=== PATIENT | male | born 1985 | race Caucasian/White ===

== ENCOUNTER 2020-08-25 07:28 | Outpatient (REF) | payer OTHER, SELFPAY ==
[2020-08-25 12:11] LABS: Syphilis Screen Nonreactive (Nonreactive)
[2020-08-25 12:22] LABS: HIV AB/AG Nonreactive (Nonreactive); HIV Num 1 0.11 S/CO (0.00-0.99)
[2020-09-20 09:12] LABS: CT PCR NOT DETECTED (Not Detect.); NG PCR NOT DETECTED (Not Detect.)
== END 2020-08-25 07:29 | disposition home or self-care (01) ==
LOC: HO.HMGCLDS 07:28
PROVIDERS: PCP Nurse Practitioner Family; Visit Provider Nurse Practitioner Family
DX: Z11.3 Encounter for screening for infections with a predominantly sexual mode of transmission (principal)
CPT/HCPCS: 86780; 87389; 87491; 87591

== ENCOUNTER → 2020-08-27 15:35 | Outpatient (BNVA) | payer OTHER, SELFPAY | PROVIDERS: PCP Nurse Practitioner Family; Visit Provider Surgery | DX: N62 Hypertrophy of breast (principal) | CPT/HCPCS: 99202 ==

== ENCOUNTER 2020-09-25 06:53 | Day surgery (SDC) | payer OTHER, SELFPAY ==
[2020-09-19 15:11] VITALS: BMI 30.8
--- NOTE | 2020-09-24 10:33 | P.CONAN_ITS ---
Documented by User: Emily Greer 09/24/20 10:34 HPI - Anesthesia Eval Consult details Narrative: 35yo M for Breast Mass Excision [facility] Past Medical History Medical History Depression Gynecomastia Insomnia Family History Family History Father No problems noted. Mother No problems noted. Surgical History Surgical History History of surgical procedure on eye proper using laser S/P correction of deviated nasal septum Social History Social History Alcohol intake: never Smoking Status: Never smoker Second Hand Smoke Exposure: No Use of substances other than those prescribed or required for medical reasons: No Advance Directives: No Advance Directives Information Provided: No Advance Directives on File: No Meds Allergies Allergy/AdvReac Type Severity Reaction Status Date / Time No Known Allergies Allergy Verified 08/19/20 11:16 Home Medications Medication Instructions Recorded Confirmed Type flu vacc [id number] 6mos up(PF) ml IM 08/19/20 08/19/20 History Exam Exam Date and Time: September 24, 2020 1033 Height,Weight and Vital Signs: Height 6 ft 4 in Weight 114.759 kg Assessment and Plan Assessment Anesthesia Assessment: Chart Reviewed Documented by User: Pawan Larson 09/25/20 07:57 [facility] Past Medical History Medical History Depression Gynecomastia Insomnia Family History Family History Father No problems noted. Mother No problems noted. Surgical History Surgical History History of surgical procedure on eye proper using laser S/P correction of deviated nasal septum Social History Social History (Reviewed 09/25/20 @ 07:57 by Pawan Dawn Alcohol intake: never Smoking Status: Never smoker Second Hand Smoke Exposure: No Use of substances other than those prescribed or required for medical reasons: No Advance Directives: No Advance Directives Information Provided: No Advance Directives on File: No Meds Allergies Allergy/AdvReac Type Severity Reaction Status Date / Time No Known Allergies Allergy Verified 08/19/20 11:16 Home Medications Medication Instructions Recorded Confirmed Type flu vacc [id number] 6mos up(PF) ml IM 08/19/20 08/19/20 History Exam Airway Mallampati Class: II TM Dist: >3cm Neck ROM: Full
[2020-09-25] VITALS (9 sets, daily range): BP systolic 115–140; BP diastolic 48–92; PULSE 63–77; RESP 12–18; TEMP 36.2–37.2; O2SAT 97–100
--- NOTE | 2020-09-25 07:21 | MHC.SHP ---
Pre-Procedural Eval Section A The patient is an INPATIENT: No Changes since office visit: No Cold of Flu in the past 2 weeks, No New Medical Problems and No Changes in Medication The History & Physical has been completed within 30 days and I have reviewed it.: Yes Section B Chief Complaint: gynecomastia Allergies: Allergies Allergy/AdvReac Type Severity Reaction Status Date / Time No Known Allergies Allergy Verified 08/19/20 11:16 Plan Diagnosis/Plan: Unchanged I have reviewed the history and physical and performed a pertinent physical examination on my patient. No changes have occurred unless specified.
[2020-09-25] MEDS: ceFAZolin Sodium/Dextrose,Iso 2 GM/50 ML PIGGYBACK IV (07:24)
[2020-09-25] MEDS: Lactated Ringers 1,000 ML 100 ML IVCONT (07:24)
--- NOTE | 2020-09-25 10:08 | P.BOP_ITS ---
Brief Operative Note Date of Service: 09/25/20 Pre-op diagnosis: Bilateral breast masses Post-op diagnosis: same Procedure: Excision bilateral breast masses Implants: none Surgeon: Basil Pabon MD Anesthesia: GLMA Superintendent Mechanical: Brina Vogel Estimated blood loss (mL): 10 Pathology: other (bilateral breast masses) Condition: stable Disposition: PACU
--- NOTE | 2020-09-25 10:09 | W.PM.OPN ---
Operative Note Operative Note Date of Service: 09/25/20 Narrative: Preoperative diagnosis: Bilateral breast masses Postoperative diagnosis: Same Procedure: Excision of bilateral breast masses Surgeon: Basil Pabon MD [employer] Repairer: Brina Vogel PA-C Anesthesia general LMA Indications for procedure this is a 35-year-old male patient presenting with complaints of bilateral breast masses located below the nipple which are painful and seems to be increasing in size over the past several years. On examination patient has bilateral hard mass is located below the nipple each measuring approximately 8 cm in the diameter. Operative findings. Patient was found to have bilateral breast masses as noted above. Specimen: Bilateral breast mass is for Estimated blood loss: 10 mL Complications: None Procedure details: Patient was brought to the OR placed in supine position. After administering general anesthesia the patient's bilateral chest was prepped with ChloraPrep and draped in a sterile fashion. A surgical time-out was called and consent confirmed. Patient received preoperative antibiotics and Venodyne boots were in place. Beginning on the left side local anesthesia consisting of 0.75% Sensorcaine mixed with equal amounts of saline solution were infiltrated did a curvilinear fashion below the nipple. Incision was then made with the scalpel. Electrocautery dissection was then performed 1st beginning below the nipple-areolar complex and then continuing below the mass along the chest wall. Dissection was continued both medial and lateral followed by superior at which point the lesion was excised. Palpation of the chest revealed several residual fragments of the lesion both in the superior medial and lateral portions of the breast. These were each excised again using electrocautery dissection down the chest wall. Wounds were checked for hemostasis. Attention was then directed to the right breast where again local anesthesia was infiltrated and a curvilinear incision made in the same fashion below the nipple. Dissection was continued on both the subareolar on and inferior to the mass. Dissection was continued around the posterior aspect of the mass on the chest wall. Additional dissection was continued both mediolateral followed by superior. The lesion was transected and an additional up portion noted in the superior margin which was also excised using electrocautery. Both incisions were irrigated with saline solution and checked for hemostasis. Dermis was reapproximated using interrupted 3-0 Polysorb sutures. Skin was then closed using a running subcuticular 4 0 Polysorb suture. Steri-Strips 2 x 2 gauze and Tegaderm were then applied. The patient tolerated the procedure well. Sponge, needle, and instrument counts were reported as correct. Patient was transferred to PACU in stable condition.
== END 2020-09-25 12:04 | disposition home or self-care (01) ==
PROVIDERS: PCP Nurse Practitioner Family; Visit Provider Surgery
PROC: (CPT 19120; principal; 2020-09-25 08:10)
DX: N62 Hypertrophy of breast (principal); N64.4 Mastodynia; F32.9 Major depressive disorder, single episode, unspecified; G47.00 Insomnia, unspecified; Z79.899 Other long term (current) drug therapy
CPT/HCPCS: 19300; 88307; J0171; J0690; J1100; J2250; J2405; J3010

== ENCOUNTER → 2020-10-03 10:14 | Outpatient (BNVA) | payer OTHER, SELFPAY | PROVIDERS: PCP Nurse Practitioner Family; Visit Provider Surgery | DX: N62 Hypertrophy of breast (principal) | CPT/HCPCS: 99212 ==

== ENCOUNTER 2021-01-30 08:23 | Outpatient (REF) | payer OTHER, SELFPAY ==
[2021-01-30 12:09] LABS: Alanine Aminotransferase 20 U/L (0-40); Albumin Level 4.5 g/dL (3.5-5.0); Alkaline Phosphatase 53 U/L (39-117); Anion Gap 12 (12-20); Aspartate Amino Transferase 26 U/L (5-37); Bilirubin Total 1.1 mg/dL (0.0-1.0); Blood Urea Nitrogen 18 mg/dL (9-16); Calcium 9.7 mg/dL (8.4-10.2); Carbon Dioxide 29 mmol/L (22-29); Chloride 103 mmol/L (96-108); Cholesterol 188 mg/dL; Estimated Glomerular Filt Rate > 60; Glucose Fasting 81 mg/dL (60-99); HDL Cholesterol 58 mg/dL; LDL Cholesterol Calculated 112 mg/dl; Potassium 4.7 mmol/L (3.3-5.1); Sodium 139 mmol/L (135-145); Total Protein 7.8 g/dL (6.5-8.0); Triglycerides 92 mg/dL
[2021-01-30 12:33] LABS: TSH reflex Free T4 1.02 uIU/mL (0.32-4.0)
[2021-01-30 12:38] LABS: HBS Num1 > 1000.00 mIU/mL (0-7.99); HBc Num1 0.13 S/CO (0.00-0.79); HIV AB/AG Nonreactive (Nonreactive); HIV Num 1 0.08 S/CO (0.00-0.99); Hepatitis A Antibody IgM 0.19 Index (0-0.79); Hepatitis B Core Antibody Nonreactive (Nonreactive); ~HepC Num1 0.09 S/CO (0.00-0.79); ~Hepatitis A Antibody IgM Nonreactive (Nonreactive); ~Hepatitis B Surface Antibody REACTIVE (Nonreactive); ~Hepatitis C Antibody Nonreactive (Nonreactive)
[2021-01-30 12:51] LABS: Syphilis Screen Nonreactive (Nonreactive)
[2021-01-30 13:01] LABS: HBsAGNum1 0.19 S/CO (0.00-0.99); Hepatitis B Surface Antigen Negative (Negative)
[2021-01-30 14:52] LABS: CT PCR NOT DETECTED (Not Detect.); NG PCR NOT DETECTED (Not Detect.)
== END 2021-01-30 08:24 | disposition home or self-care (01) ==
LOC: HO.HMGCLDS 08:23
PROVIDERS: PCP Nurse Practitioner Family; Visit Provider Nurse Practitioner Family
DX: Z00.00 Encounter for general adult medical examination without abnormal findings (principal); Z11.3 Encounter for screening for infections with a predominantly sexual mode of transmission
CPT/HCPCS: 80053; 80061; 84443; 86704; 86706; 86709; 86780; 86803; 87340; 87389; 87491; 87591

== ENCOUNTER 2021-06-10 15:20 | Outpatient (REF) | payer OTHER, SELFPAY ==
[2021-06-10 16:39] LABS: MANUAL DIFF FLAG NO
[2021-06-10 16:45] LABS: Basophils Percent Auto 0.1 % (0-2); Eosinophils Percent Auto 0.4 % (0-4); Hematocrit 42.2 % (42-52); Hemoglobin 14.5 g/dl (14.0-18.0); Imm Gran Abs Auto 0.01 X10*3/uL (0.00-0.03); Imm Gran Pct Auto 0.1 % (0.0-0.4); Lymphocytes Absolute Auto 2.8 X10*3/uL (1.2-4.9); Mean Corpuscular HGB Conc 34.4 g/dl (31.0-36.0); Mean Corpuscular Hemoglobin 32.2 pg (27.0-33.0); Mean Corpuscular Volume 93.8 fL (80-98); Mean Platelet Volume 10.3 fL (9.4-12.4); Monocytes Absolute Auto 0.4 X10*3/uL (0.1-1.2); Monocytes Percent Auto 5.8 % (2-11); Neutrophils Percent Auto 55.6 % (45-73); Platelet Count 207 X10*3/uL (160-400); Red Cell Distribution Width 12.8 % (11.0-16.0); White Blood Count 7.2 X10*3/uL (4.8-10.8)
[2021-06-10 17:04] LABS: Iron 83 mcg/dL (45-160); Percent Iron Saturation 25 % (15-50); Total Iron Binding Capacity 326 mcg/dL (228-428); Unsaturated Iron Binding 243 ug/dL
[2021-06-10 17:26] LABS: Ferritin 228 ng/mL (20-250); Syphilis Screen Nonreactive (Nonreactive); TSH reflex Free T4 1.31 uIU/mL (0.32-4.0)
[2021-06-10 17:39] LABS: Folate 15.2 ng/mL (> or = 4.0); Vitamin B12 677 pg/mL (200-900)
[2021-06-11 01:33] LABS: CT PCR NOT DETECTED (Not Detect.); NG PCR NOT DETECTED (Not Detect.)
[2021-06-11 08:15] LABS: HBS Num1 > 1000.00 mIU/mL (0-7.99); HIV AB/AG Nonreactive (Nonreactive); HIV Num 1 0.12 S/CO (0.00-0.99); Hepatitis B Core Antibody Nonreactive (Nonreactive); ~HepC Num1 0.07 S/CO (0.00-0.79); ~Hepatitis B Surface Antibody REACTIVE (Nonreactive); ~Hepatitis C Antibody Nonreactive (Nonreactive)
[2021-06-11 08:33] LABS: HBsAGNum1 0.15 S/CO (0.00-0.99); Hepatitis B Surface Antigen Negative (Negative)
[2021-06-12 01:12] LABS: Lyme Abs Screen <0.90 index
[2021-06-12 08:07] LABS: Hepatitis A Antibody IgM 0.14 Index (0-0.79); ~Hepatitis A Antibody IgM Nonreactive (Nonreactive)
== END 2021-06-10 15:21 | disposition home or self-care (01) ==
LOC: HO.HMGCLDS 15:20
PROVIDERS: PCP Nurse Practitioner Family; Visit Provider Nurse Practitioner Family
DX: R53.83 Other fatigue (principal); Z11.3 Encounter for screening for infections with a predominantly sexual mode of transmission
CPT/HCPCS: 82607; 82728; 82746; 83540; 84443; 85025; 86617; 86618; 86704; 86706; 86709; 86780; 86803; 87340; 87389; 87491; 87591

== ENCOUNTER → 2021-09-21 15:11 | Outpatient (BNVA) | payer SELFPAY | PROVIDERS: PCP Nurse Practitioner Family; Visit Provider Internal Medicine | DX: Z02.79 Encounter for issue of other medical certificate (principal) ==

== ENCOUNTER 2021-09-25 11:41 | Outpatient (REF) | payer OTHER, SELFPAY ==
[2021-09-25 13:53] LABS: Appearance Urine CLEAR; Color Urine YELLOW; Glucose Urine UA NEG (NEG); Leukocyte Esterase Urine NEG (NEG); Nitrite Urine NEG (NEG); Specific Gravity - Urine 1.025 (1.005-1.025); Urine Blood NEG (NEG); Urine Ketones NEG (NEG); Urine Protein NEG (NEG-TRACE)
[2021-09-25 14:17] LABS: Alanine Aminotransferase 22 U/L (0-40); Albumin Level 4.4 g/dL (3.5-5.0); Alkaline Phosphatase 51 U/L (39-117); Anion Gap 12 (12-20); Aspartate Amino Transferase 33 U/L (5-37); Bilirubin Total 1.1 mg/dL (0.0-1.0); Blood Urea Nitrogen 18 mg/dL (9-16); Calcium 9.6 mg/dL (8.4-10.2); Carbon Dioxide 24 mmol/L (22-29); Chloride 107 mmol/L (96-108); Cholesterol 172 mg/dL; Estimated Glomerular Filt Rate > 60; Glucose Fasting 89 mg/dL (60-99); HDL Cholesterol 57 mg/dL; LDL Cholesterol Calculated 104 mg/dl; Potassium 4.2 mmol/L (3.3-5.1); Sodium 139 mmol/L (135-145); Total Protein 7.4 g/dL (6.5-8.0); Triglycerides 57 mg/dL
[2021-09-25 14:35] LABS: Syphilis Screen Nonreactive (Nonreactive)
[2021-09-25 14:39] LABS: TSH reflex Free T4 1.32 uIU/mL (0.32-4.0)
[2021-09-25 15:35] LABS: CT PCR NOT DETECTED (Not Detect.); NG PCR NOT DETECTED (Not Detect.)
[2021-09-26 13:20] LABS: Herpes Simplex Type 1 IgG <0.90 index; Herpes Simplex Type 2 IgG <0.90 index
[2021-09-28 04:59] LABS: HIV AB/AG Nonreactive (Nonreactive)
== END 2021-09-25 11:42 | disposition home or self-care (01) ==
LOC: HO.HMGCLDS 11:41
PROVIDERS: PCP Nurse Practitioner Family; Visit Provider Nurse Practitioner Family
DX: Z00.00 Encounter for general adult medical examination without abnormal findings (principal); Z11.3 Encounter for screening for infections with a predominantly sexual mode of transmission; Z11.4 Encounter for screening for human immunodeficiency virus [HIV]
CPT/HCPCS: 80053; 80061; 81003; 84443; 86695; 86696; 86780; 87389; 87491; 87591

== ENCOUNTER → 2022-07-01 09:02 | Outpatient (BNVA) | payer OTHER, SELFPAY | PROVIDERS: PCP Nurse Practitioner Family; Visit Provider Nurse Practitioner Family | DX: F33.9 Major depressive disorder, recurrent, unspecified (principal); G47.00 Insomnia, unspecified; G47.19 Other hypersomnia; G47.30 Sleep apnea, unspecified | CPT/HCPCS: 99202 ==

== ENCOUNTER → 2022-09-28 20:30 | Outpatient (REF) | payer OTHER, SELFPAY | LOC: HO.SL 20:30 | PROVIDERS: PCP Nurse Practitioner Family; Visit Provider Nurse Practitioner Family | DX: G47.33 Obstructive sleep apnea (adult) (pediatric) (principal) | CPT/HCPCS: 95810 ==

== ENCOUNTER → 2022-10-20 14:33 | Outpatient (BNVA) | payer OTHER, SELFPAY | PROVIDERS: PCP Nurse Practitioner Family; Visit Provider Nurse Practitioner Family | DX: G47.33 Obstructive sleep apnea (adult) (pediatric) (principal); Z99.89 Dependence on other enabling machines and devices | CPT/HCPCS: 99212 ==

== ENCOUNTER → 2022-11-22 13:20 | Outpatient (BNVA) | payer OTHER, SELFPAY | PROVIDERS: PCP Nurse Practitioner Family; Visit Provider Nurse Practitioner Family | DX: G47.33 Obstructive sleep apnea (adult) (pediatric) (principal); Z99.89 Dependence on other enabling machines and devices | CPT/HCPCS: 99212 ==

== ENCOUNTER 2022-12-13 06:07 | Outpatient (REF) | payer OTHER, SELFPAY ==
[2022-12-13 11:15] LABS: MANUAL DIFF FLAG NO
[2022-12-13 11:50] LABS: Basophils Percent Auto 0.2 % (0-2); Eosinophils Percent Auto 0.5 % (0-4); Hematocrit 43.1 % (42.0-52.0); Hemoglobin 14.4 g/dl (14.0-18.0); Imm Gran Abs Auto 0.01 X10*3/uL (0.00-0.03); Imm Gran Pct Auto 0.2 % (0.0-0.4); Lymphocytes Absolute Auto 2.2 X10*3/uL (1.2-4.9); Lymphocytes Percent Auto 38.1 % (20-40); Mean Corpuscular HGB Conc 33.4 g/dl (31.0-36.0); Mean Corpuscular Volume 92.9 fL (80.0-98.0); Mean Platelet Volume 10.3 fL (9.4-12.4); Monocytes Absolute Auto 0.4 X10*3/uL (0.1-1.2); Monocytes Percent Auto 7.5 % (2-11); Neutrophils Absolute Auto 3.1 x10*3/uL (2.0-8.3); Neutrophils Percent Auto 53.5 % (45-73); Platelet Count 217 X10*3/uL (160-400); Red Blood Count 4.64 X10*6/uL (4.60-5.80); Red Cell Distribution Width 12.9 % (11.0-16.0); White Blood Count 5.7 X10*3/uL (4.8-10.8)
[2022-12-13 11:51] LABS: Appearance Urine Clear; Color Urine Yellow; Glucose Urine UA Negative (Negative); Leukocyte Esterase Urine Negative (Negative); Nitrite Urine Negative (Negative); PH 6.5 (5.0-9.0); Specific Gravity - Urine 1.025 (1.005-1.025); Urine Blood Negative (Negative); Urine Ketones Negative (Negative); Urine Protein Negative (Neg-Trace)
[2022-12-13 12:31] LABS: Alanine Aminotransferase 18 U/L (0-40); Albumin Level 4.2 g/dL (3.5-5.0); Alkaline Phosphatase 47 U/L (39-117); Anion Gap 11 (12-20); Aspartate Amino Transferase 28 U/L (5-37); Bilirubin Total 1.3 mg/dL (0.0-1.0); Blood Urea Nitrogen 21 mg/dL (9-16); Calcium 9.3 mg/dL (8.4-10.2); Carbon Dioxide 28 mmol/L (22-29); Chloride 105 mmol/L (96-108); Cholesterol 176 mg/dL; Estimated Glomerular Filt Rate > 60; Glucose Fasting 99 mg/dL (60-99); HDL Cholesterol 58 mg/dL; LDL Cholesterol Calculated 105 mg/dl; Potassium 4.6 mmol/L (3.3-5.1); Sodium 139 mmol/L (135-145); Total Protein 7.1 g/dL (6.5-8.0); Triglycerides 66 mg/dL
[2022-12-13 13:13] LABS: HIV AB/AG Nonreactive (Nonreactive); Syphilis Screen Nonreactive (Nonreactive)
== END 2022-12-13 06:08 | disposition home or self-care (01) ==
LOC: HO.HMGCLDS 06:07
PROVIDERS: PCP Nurse Practitioner Family; Visit Provider Nurse Practitioner Family
DX: Z00.00 Encounter for general adult medical examination without abnormal findings (principal); F32.9 Major depressive disorder, single episode, unspecified; G47.30 Sleep apnea, unspecified; Z20.2 Contact with and (suspected) exposure to infections with a predominantly sexual mode of transmission; E78.5 Hyperlipidemia, unspecified
CPT/HCPCS: 36415; 80053; 80061; 81003; 84443; 85025; 86780; 87389

== ENCOUNTER 2023-04-18 12:56 | Outpatient (AMB) | payer OTHER, SELFPAY ==
[2023-04-18 13:28] VITALS: BP 130/72; PULSE 63; TEMP 35.9; O2SAT 96
--- NOTE | 2023-04-18 13:28 | MHC.OFFWIV ---
Intake Vital Signs 04/18/23 13:28 Height 6 ft 4 in BP 130/72 Blood Pressure Location Lt brachial Position Sitting Pulse 63 Pulse Source Pulse Oximeter Temp 96.6 F L Temp Source Temporal Artery Scan Pulse Oximetry (%) 96 Oxygen Delivery Method Room Air Intake Visit Reasons: EST/ mental health issues Intake Note: Pt is here today c/o mental health issues. 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 Patient Tobacco Use Status: Never used Tobacco Allergies No Known Allergies Allergy (Verified 04/18/23 13:28) Do you need a note to return to daycare/school/sports/work: No HPI EST/ mental health issues HPI Details Patient presents with multiple concerns with his mental health. He has had ongoing counseling with the [facility] and is experiencing worsening depression. He recently returned 2 months away on orders. He has been home for 2 days and the intent is for him to leave again for 2 weeks. He does not feel he is mentally well enough to do this. He does have a letter from his mental health provider stating as such that his treatment has been intermittent due to being away on orders. He has gone to several channels with his [employer] unit about remaining at home station so he can get back into counseling prior to leaving again. I did reviews chart he has had several issues with depression, ADD as well as struggles at work as well. Patient denies suicidal thoughts, suicidal ideation homicidal thoughts homicidal ideation or thoughts of hurting himself or anyone else. [facility] Medical History Chronic recurrent major depressive disorder Depression Insomnia Surgical History Gynecomastia History of surgical procedure on eye proper using laser S/P correction of deviated nasal septum Family History Father FAHAD (obstructive sleep apnea) Mother No problems noted. Brother Substance use disorder Social History Housing: Apartment Alcohol intake: never Patient Tobacco Use Status: Never used Tobacco e-Cigarette/Vaping Use: Never Used Second Hand Smoke Exposure: No service: Yes Current occupational status: employed Current occupation: [employer] Current occupational exposures/hazards: No Cognitive needs: No Hearing needs: No Vision needs: No Review of Systems Const Reports as per HPI and Reports no additional complaints Skin/Breast Denies lesions Neuro Reports no additional complaints and Reports as per HPI Physical Exam Vital Signs: Last Vital Signs Temp 96.6 F L 04/18/23 13:28 Pulse 63 04/18/23 13:28 BP 130/72 04/18/23 13:28 Pulse Ox 96 04/18/23 13:28 Oxygen Delivery Method Room Air 04/18/23 13:28 Const General: cooperative, comfortable, no acute distress and other (good historian and quite eloquent describing his thoughts feelings events) Orientation/consciousness: patient oriented x3 Limitations: no limitations Resp Effort & Inspection: normal respiratory effort Auscultation: clear to auscultation bilaterally Cardio Rate: regular rate Rhythm: regular rhythm Heart sounds: S1 normal heart sound present and S2 normal heart sound present Neuro General: patient oriented x3 Psych Appearance: well kempt Mental Status: mental status grossly normal Speech and movement: Normal speech and movement present and Clear speech present Affect: normal affect and Sad affect present Attitude: cooperative Thought process: Normal thought process present Thought content: Normal thought content present, suicidality, no homicidality, no delusions and Depressive thoughts present (Discusses his coping mechanisms are not working especially in the workplace) Insight: Good insight present (Psych) Judgement: Good judgement present (Psych) Assessment & Plan Assessment & Plan (1) Chronic recurrent major depressive disorder: Code(s): F33.9 - Major depressive disorder, recurrent, unspecified Plan: I have provided a patient with a letter reiterating with his mental health providers stated in her letter, as well summarizing his reported worsening depression and anxiety today in relation to leaving again. I strongly advised patient to have another discussion with command team and seek alternative avenue was as needed. ER if any concerns about suicidal thoughts ideation or thoughts of hurting another person. Patient agrees and he is currently not having these thoughts at this time. 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 Coding Level of Care Code Est Pt Level 4 (04543) Diagnoses Chronic recurrent major depressive disorder F33.9
== END 2023-04-18 14:41 | disposition home or self-care (01) ==
PROVIDERS: PCP Nurse Practitioner Family; Visit Provider Physician Assistant
DX: F33.9 Major depressive disorder, recurrent, unspecified (principal)
CPT/HCPCS: 99214

== ENCOUNTER 2023-06-01 08:35 | Outpatient (AMB) | payer OTHER, SELFPAY ==
[2023-06-01 08:39] VITALS: BP 92/60; PULSE 48; O2SAT 97; BMI 30.2
--- NOTE | 2023-06-01 08:39 | MHC.PC.OV ---
Vital Signs 06/01/23 08:39 Height 6 ft 4 in Weight 248 lb 2 oz BMI 30.2 BP 92/60 Blood Pressure Location Rt brachial Position Sitting Pulse 48 L Pulse Source Pulse Oximeter Pulse Oximetry (%) 97 Oxygen Delivery Method Room Air Intake Visit Reasons: 3m follow up, depression Allergies No Known Allergies Allergy (Verified 06/01/23 08:42) Medication List - Last Reconciled 06/01/23 by KEN Veloz zolpidem (Ambien) 5 mg PO BEDTIME 30 days Tobacco use date assessed: 06/01/23 Dental Screening Dental Screen Date: 06/01/23 Did you have a dental visit in the last 12 months?: Yes Did you have a dental problem in the last 6 months where you did not have access to dental care?: No Was dental information given to patient?: Patient has dentist HPI 3m follow up, depression HPI Details Depression: Pt is seeing a therapist biweekly. Pt really needs a psychiatrist, but this has been hard to find. He will be relocating in the near future and plans to find a psychiatrist. He does deny SI or HI. Insomnia: was on ambien which helped. I will restart this. [facility] Medical History Chronic recurrent major depressive disorder Insomnia Depression Surgical History Gynecomastia History of surgical procedure on eye proper using laser S/P correction of deviated nasal septum Family History Father FAHAD (obstructive sleep apnea) Mother No problems noted. Brother Substance use disorder Social History Housing: Apartment Alcohol intake: never Patient Tobacco Use Status: Never used Tobacco e-Cigarette/Vaping Use: Never Used Second Hand Smoke Exposure: No service: Yes Current occupational status: employed Current occupation: [employer] Current occupational exposures/hazards: No Cognitive needs: No Hearing needs: No Vision needs: No Questionnaire Thrive Questionnaire Date Thrive assessed: 07/21/22 KIKE-7 AMB Questionnaire KIKE-7 Date KIKE - 7 assessed: 08/20/21 Source: Developed by Drs. Kyrie Zuluaga, Gaby Crockett, Pranav Acevedo and colleagues, with an educational ijeoma from [employer]. Review of Systems Const Reports as per HPI Physical exam (Primary Care) Vital Signs: Last Vital Signs Pulse 48 L 06/01/23 08:39 BP 92/60 06/01/23 08:39 Pulse Ox 97 06/01/23 08:39 Oxygen Delivery Method Room Air 06/01/23 08:39 BMI result Body Mass Index 30.2 Tobacco/Smoking Status: Tobacco use Status Tobacco use date assessed 06/01/23 06/01/23 08:44 Patient Tobacco Use Status Never used Tobacco 06/01/23 08:44 e-Cigarette/Vaping Use Never Used 06/01/23 08:44 Thrive Assessment: Date of Thrive Assessment Date Thrive assessed 07/21/22 06/01/23 08:44 Const General: cooperative Orientation/consciousness: patient oriented x3 Resp Effort & Inspection: normal respiratory effort Auscultation: clear to auscultation bilaterally Cardio Rate: regular rate Rhythm: regular rhythm Heart sounds: S1 normal heart sound present and S2 normal heart sound present Neuro General: patient oriented x3 Psych Appearance: grossly normal Mental Status: mental status grossly normal Speech and movement: Normal speech and movement present Affect: normal affect Attitude: cooperative Thought process: Normal thought process present Thought content: Normal thought content present Insight: Good insight present (Psych) Judgement: Good judgement present (Psych) Assessment and Plan Assessment & Plan (1) Depression: Code(s): F32.9 - Major depressive disorder, single episode, unspecified Plan: Pt will find a psychiatrist after relocating, multiple meds tried in the past (failed) (2) Insomnia: Code(s): G47.00 - Insomnia, unspecified Plan: Restarting ambien Plan The patient agreed to the use of a medical insurance coding specialist for this encounter. Scribed for KEN Quinones by Kathie Antonio medical insurance coding specialist, on 06/01/2023 at 08:55 EST. Medications: New zolpidem (Ambien) may repeat once if no response in 30-60 minutes 5 mg PO BEDTIME 30 tabs 3RF 30 days Coding Level of Care Code Est Pt Level 3 (92546) Diagnoses Depression F32.9 Insomnia G47.00
== END 2023-06-01 09:24 | disposition home or self-care (01) ==
PROVIDERS: PCP Nurse Practitioner Family; Visit Provider Nurse Practitioner Family
DX: G47.00 Insomnia, unspecified (principal); F32.9 Major depressive disorder, single episode, unspecified
CPT/HCPCS: 99213

== ENCOUNTER 2023-07-20 06:10 | Outpatient (REF) | payer OTHER, SELFPAY ==
[2023-07-20 12:00] LABS: HIV AB/AG Nonreactive (Nonreactive); HIV Num 1 0.11 S/CO (0.00-0.99)
[2023-07-20 12:06] LABS: Syphilis Screen Nonreactive (Nonreactive)
[2023-07-20 13:55] LABS: CT PCR NOT DETECTED (Not Detect.); NG PCR NOT DETECTED (Not Detect.)
[2023-07-21 22:38] LABS: Herpes Simplex Type 1 IgG <0.90 index; Herpes Simplex Type 2 IgG <0.90 index
== END 2023-07-20 06:11 | disposition home or self-care (01) ==
LOC: HO.HMGCLDS 06:10
PROVIDERS: PCP Nurse Practitioner Family; Visit Provider Nurse Practitioner Family
DX: Z20.2 Contact with and (suspected) exposure to infections with a predominantly sexual mode of transmission (principal)
CPT/HCPCS: 0353U; 86695; 86696; 86780; 87389

== ENCOUNTER 2023-08-11 15:08 | Outpatient (AMB) | payer OTHER, SELFPAY ==
[2023-08-11 15:49] VITALS: BP 140/80; PULSE 82; TEMP 36.7; O2SAT 98; BMI 29.8
--- NOTE | 2023-08-11 15:49 | AM.OFFWIN_ITS ---
Intake Vital Signs 08/11/23 15:49 Height 6 ft 4 in Weight 245 lb BMI 29.8 BP 140/80 H Blood Pressure Location Rt brachial Position Sitting Pulse 82 Pulse Source Pulse Oximeter Temp 98.0 F Temp Source Temporal Artery Scan Pulse Oximetry (%) 98 Oxygen Delivery Method Room Air Intake Visit Reasons: EP Sinus pressure body aches [id number] Intake Note: pt is here today for sinus pressure body aches started 5 days ago Patient Tobacco Use Status: Never used Tobacco Allergies No Known Allergies Allergy (Verified 08/11/23 15:50) Do you need a note to return to daycare/school/sports/work: Yes HPI HPI Comments History of Present Illness Details This is a 38-year-old male with no stated past medical history presenting for evaluation of sinus pressure and body aches he has had for the past 5 days. Patient is currently in the [employer] and is scheduled to camp outside throughout the weekend. Patient is reporting chills, rhinorrhea, fatigue and body aches but denies having any fevers, sore throat, ear pain, shortness of breath or chest pain. Patient is taking Mucinex without relief of his symptoms. Of note, patient had a negative test for COVID-19 at home. [facility] Medical History (Updated 08/11/23 @ 16:23 by Nela Segundo PA-C) Viral syndrome Chronic recurrent major depressive disorder Insomnia Depression Surgical History Gynecomastia History of surgical procedure on eye proper using laser S/P correction of deviated nasal septum Family History Father FAHAD (obstructive sleep apnea) Mother No problems noted. Brother Substance use disorder Social History Housing: Apartment Alcohol intake: never Patient Tobacco Use Status: Never used Tobacco e-Cigarette/Vaping Use: Never Used Second Hand Smoke Exposure: No service: Yes Current occupational status: employed Current occupation: [employer] Current occupational exposures/hazards: No Cognitive needs: No Hearing needs: No Vision needs: No Review of Systems Const Reports chills, Denies fever(s), Reports lethargy and Reports malaise Eyes Reports as per HPI ENT Reports no additional complaints Card Reports as per HPI Resp Reports as per HPI GI Reports as per [facility] Skin/Breast Reports system reviewed and no additional complaints, except as documented Psych Reports no additional complaints Physical Exam Vital Signs: Last Vital Signs Temp 98.0 F 08/11/23 15:49 Pulse 82 08/11/23 15:49 BP 140/80 H 08/11/23 15:49 Pulse Ox 98 08/11/23 15:49 Oxygen Delivery Method Room Air 08/11/23 15:49 BMI result Body Mass Index 29.8 Patient is afebrile. Const General: cooperative, healthy appearing, comfortable and no acute distress Nutritional Appearance: average body habitus Orientation/consciousness: patient oriented x3 Limitations: no limitations HEENT Head: Yes normal to inspection Ears: hearing grossly normal bilaterally, external ears normal, TM's normal bilaterally and EAC's normal General nose exam: Normal external nose present Face and sinus: Yes normal facial exam and Yes sinuses nontender Mouth: Normal oral and palatal mucosa present Teeth and gingiva: dentition normal Throat: Yes posterior oropharynx normal ( There is no edema, erythema or exudates of the posterior oropharynx.) Eyes General: appearance normal, both eyes and all related structures Eyelids: Yes eyelids normal Conjunctivae: conjunctivae normal Sclerae: sclerae normal Corneas: corneas normal Pupils: Equal, round and reactive pupils present EOM: EOMs intact bilaterally Neck Lymphatic: no lymphadenopathy noted Resp Effort & Inspection: normal respiratory effort Auscultation: clear to auscultation bilaterally Cardio Rate: regular rate Rhythm: regular rhythm Skin General skin exam: no rashes or lesions noted Neuro General: patient oriented x3 Cranial nerves: Yes Equal, round and reactive pupils present Psych Appearance: grossly normal Mental Status: mental status grossly normal Insight: Good insight present (Psych) Judgement: Good judgement present (Psych) Assessment & Plan Assessment & Plan (1) Viral syndrome: Code(s): B34.9 - Viral infection, unspecified Plan: Work note provided through 08.15.2023; ibuprofen or Tylenol as needed for discomfort, increase clear fluids daily, follow-up with PCP as needed. Coding Level of Care Code Est Pt Level 3 (85810) Diagnoses Viral syndrome B34.9 Time Spent (min) 25
== END 2023-08-11 16:28 | disposition home or self-care (01) ==
PROVIDERS: PCP Nurse Practitioner Family; Visit Provider Physician Assistant
DX: B34.9 Viral infection, unspecified (principal)
CPT/HCPCS: 99213